=== PATIENT | female | born 1990 | race American Indian/Alaskan Native ===

== ENCOUNTER 2025-05-15 19:14 | Emergency (ER) | payer MEDICAID, SELFPAY ==
[2025-05-15 19:16] VITALS: BMI 27.8
[2025-05-15 20:07] VITALS: BP 116/78; PULSE 80; RESP 16; TEMP 37.3; O2SAT 99
--- NOTE | 2025-05-15 20:31 | PD.EDGIBLD ---
ED GI Bleed RME/HPI General Chief complaint: General Adult/Misc Complain Stated complaint: RECTAL BLEEDING Time Seen by Provider: 05/15/25 20:27 Arrival date/time: 05/15/25 19:14 Limitations: no limitations RME / HPI RME / HPI Narrative: 34-year-old female who is here today with complaint of external hemorrhoids and lower GI bleed. She states over this past week she has noticed some blood with her bowel movements. She has no diarrhea. Denies any nausea or vomiting. No syncopal related episodes. She states her doctor placed her on Mortensen form yesterday and that has not resolved her symptoms. She has no other acute complaints or concerns. Related Data Home Medications ?Medication ?Instructions ?Recorded ?Confirmed vitamin-ferrous fumarate 1 tab PO QDAY 12/28/20 02/11/23 28 mg iron-folic acid 800 mcg tablet ( Vitamins with Minerals) cetirizine 10 mg tablet (Zyrtec) 10 mg PO QDAY 02/11/23 02/11/23 Previous Rx's ?Medication ?Instructions ?Recorded docusate sodium 100 mg capsule 100 mg PO BID #60 caps 02/11/23 (Colace) ibuprofen 800 mg tablet 800 mg PO Q6H PRN pain #90 tabs 02/11/23 lanolin 50 % topical ointment 1 applic topical TID PRN skin 02/11/23 irritation #15 tubes Allergies Allergy/AdvReac Type Severity Reaction Status Date / Time No Known Allergies Allergy Verified 05/15/25 19:15 Review of Systems Review of Systems Systems Reviewed: All systems reviewed, normal except as documented ED Exam General Limitations: Present no limitations General appearance: Present alert and in no apparent distress Head Head exam: Present atraumatic Eye Eye exam: Present normal appearance, PERRL and EOMI ENT ENT exam: Present normal exam, normal oropharynx and mucous membranes moist Neck Neck exam: Present normal inspection, full ROM and trachea midline Chest Chest inspection: Present normal inspection and symmetric chest wall rise Respiratory Respiratory exam: Present normal lung sounds bilaterally Cardiovascular Cardiovascular exam: Present regular rate, normal rhythm and normal heart sounds Abdominal Exam Abdominal exam: Present soft and normal bowel sounds Rectal Exam Rectal exam: Present normal inspection, normal rectal tone, heme (-) stool and other (Exam performed with female RN Carmella Lujan present. ) Extremities Exam Extremities exam: Present normal inspection and full ROM Back Exam Back exam: Present normal inspection and full ROM Neurological Exam Neurological exam: Present alert and oriented X3 Psychiatric Psychiatric exam: Present normal affect and normal mood Skin Skin exam: Present warm, dry, intact and normal color Course Quality Measures none Orders Category Date Time Status Occult Blood,Stool (Nursing) ONCE Care 05/15/25 20:28 Active CBC Stat Lab 05/15/25 20:34 Completed CMP [Comprehensive Metabolic Panel] Stat Lab 05/15/25 20:34 Completed HCG,Qualitative Serum Stat Lab 05/15/25 20:34 Completed UA, C/S IF [Urinalysis, C/S if Indicated] Stat Lab 05/15/25 20:27 Ordered Vital Signs Vital signs: Vital Signs Temperature 99.1 F 05/15/25 20:07 Pulse Rate 80 05/15/25 20:07 Respiratory Rate 16 05/15/25 20:07 Blood Pressure 116/78 05/15/25 20:07 Pulse Oximetry (%) 99 05/15/25 20:07 Oxygen Delivery Method Room Air 05/15/25 20:07 GI Bleed MDM Narrative MDM Narrative:: 34-year-old female who is here today with complaint of external hemorrhoids and lower GI bleed. She states over this past week she has noticed some blood with her bowel movements. She has no diarrhea. Denies any nausea or vomiting. No syncopal related episodes. She states her doctor placed her on Mortensen form yesterday and that has not resolved her symptoms. She has no other acute complaints or concerns. On exam patient is nontoxic-appearing and in no visible signs of distress. She is anxious appearing. Vital signs are stable. She is not hypotensive and has no tachycardia. Her CBC and metabolic panel are unremarkable. hCG was negative. On exam, patient has a nonthrombosed external hemorrhoid. No gross blood was appreciated on rectal exam that was performed with female RN present. Bedside Hemoccult was negative. Patient would like to be referred to GI. We will place a referral to Dr. Borrego. Patient is invited to return here as needed for any worsening changes. She will avoid any NSAID use. Patient data External records reviewed:: None Clinical information provided by:: patient Social determinants that could affect healthcare access:: none Patient has the following chronic illnesses:: n/a How is presenting disease/condition affected by chronic disease/condition?: uneffected by Evaluation data The following diagnostics were reviewed and interpreted by me:: lab results (CBC and metabolic panel is unremarkable. Bedside Hemoccult is negative) Lab and/or radiology exams considered but not ordered:: n/a Interpretation Summary: No anemia or leukocytosis. Bedside Hemoccult is Medications / Prescriptions Medications or Prescriptions considered but not ordered:: n/a Medication administrations:: n/a Consultations Consultation(s) initiated? (list below): No Diagnosis GI bleed differential diagnosis: hemorrhoids, gastritis and Lower gastrointestinal hemorrhage Most likely diagnosis given after review of the tests above:: External hemorrhoid, lower GI bleed Admission Indicated Admission indicated?: not indicated Admission Request Was there a request for admission?: No Disposition Plan Disposition Plan: Discharge Discharge Attestation Discharge Attestation: The patient and all family members were given an opportunity to ask questions and understood the discharge instructions. Discharge instructions specifically effects, indications for sooner follow up or return to the emergency department, and the expected course of current diagnosis. Patient condition: Stable Discharge Plan Plan Patient Disposition: HOME (Self Care) Patient condition on transfer: Stable Prescriptions/Referrals Prescriptions/Med Rec: No Action vit-iron fum-folic ac [ Vitamin with Minerals] 28 mg iron- 800 mcg Tablet 1 tab PO QDAY cetirizine [Zyrtec] 10 mg Tablet 10 mg PO QDAY ibuprofen 800 mg tablet 800 mg PO Q6H MDD 4 PRN (Reason: pain) Qty: 90 0RF docusate sodium [Colace] 100 mg capsule 100 mg PO BID Qty: 60 0RF lanolin 50 % ointment 1 applic topical TID PRN (Reason: skin irritation) Qty: 15 0RF Referrals: Nicola Borrego MD [Physician] - In 1 week Problem List Clinical Impression: Acute lower gastrointestinal bleeding Patient/Caregiver Discharge Instructions Additional Instructions: - Continue current medications. - Contact gastroenterology to schedule close follow-up appointment. - Return to the emergency room at anytime for any worsening changes as needed. Print Language: Ecuadorean Stand Alone Forms: Kylee Award Info., Patient Portal Info Letter
[2025-05-15 21:02] LABS: Basophils # (Auto) 0.1 Thou/mm3 (0.0-0.2); Basophils % (Auto) 1 % (0-2.5); Eosinophils # (Auto) 0.1 Thou/mm3 (0.0-0.5); Eosinophils % (Auto) 1 % (0-10); Hematocrit 40.1 % (36.0-46.0); Hemoglobin 13.8 g/dL (12.0-16.0); Immature Granulocytes Auto 0.04 Thou/mm3 (0.00-0.00); Lymphocytes # (Auto) 3.1 Thou/mm3 (1.0-4.8); Lymphocytes % (Auto) 25 % (10-50); Mean Corpuscular HGB Conc 34.4 g/dl (31.0-37.0); Mean Corpuscular Hemoglobin 29.2 pg (25.0-35.0); Mean Corpuscular Volume 85 fL (80-100); Monocytes # (Auto) 0.9 Thou/mm3 (0.0-0.8); Monocytes % (Auto) 7 % (0-12); Neutrophils # (Auto) 8.1 Thou/mm3 (1.8-7.7); Neutrophils % (Auto) 66 % (37-80); Nucleated Red Blood Cell # 0.00 Thou/mm3 (0.00-0.00); Nucleated Red Blood Cell % 0 /100 WBC (0); Platelet Count 287 Thou/mm3 (140-440); RDW Standard Deviation 42.9 fL (36.4-46.3); Red Blood Count 4.73 Miln/mm3 (4.00-5.20); White Blood Count 12.3 Thou/mm3 (3.6-11.0)
[2025-05-15 21:05] LABS: HCG,Qualitative Serum Negative
[2025-05-15 21:12] LABS: Alanine Aminotransferase 12 U/L (10-49); Albumin, Serum 4.6 gm/dL (3.5-5.0); Albumin/Globulin Ratio 1.6 (1.2-2.2); Alkaline Phosphatase 63 U/L (46-116); Anion Gap 8 (7-16); Aspartate Amino Transferase 16 U/L (0-34); BUN/Creatinine Ratio 11 Ratio (12-20); Bilirubin,Total 0.4 mg/dL (0.3-1.2); Blood Urea Nitrogen 8 mg/dL (9-23); Calcium 9.4 mg/dL (8.3-10.6); Calcium (Corrected) 9.4 mg/dL (8.5-10.1); Carbon Dioxide 27.2 mMol/L (20.0-31.0); Chloride 106 mMol/L (98-107); Creatinine (Component) 0.7 mg/dL (0.6-1.3); Estimated Creatinine Clearance 92.8 mL/min (>60); Globulin 2.9 gm/dL (2.3-3.5); Glucose 102 mg/dL (74-106); Osmolality,Calculated 279 (275-295); Potassium 4.5 mMol/L (3.4-5.1); Sodium 141 mMol/L (136-145); Total Protein 7.5 gm/dL (5.7-8.2); eGFR > 60 See Note
[2025-05-15 22:39] VITALS: BP 120/70; PULSE 76; RESP 18; TEMP 37; O2SAT 98
== END 2025-05-15 22:40 | disposition home or self-care (01) ==
PROVIDERS: Physician Assistant Medical; Emergency Provider Emergency Medicine
DX: K92.2 Gastrointestinal hemorrhage, unspecified (principal)
CPT/HCPCS: 36415; 80053; 81001; 84703; 85025; 99283